=== PATIENT | female | born 1955 | race Caucasian/White ===

== ENCOUNTER 2017-03-10 00:13 | Inpatient (IN) | payer MEDICARE, OTHER ==
--- NOTE | 2017-03-10 00:31 | PDOC ---
History of Present Illness - General History Source: Patient, Family, Old Records Exam Limitations: No Limitations - History of Present Illness Initial Comments: 03/10/17 00:49 The patient is a 61 year old female, with a significant past medical history of hypertension, hyperlipidemia, diabetes and multiple myeloma (currently undergoing chemotherapy), who presents to the emergency department with chest pain just prior to presentation. The patient reports that she was in her usual state of health earlier this evening. The patient reports that just as she was going to bed tonight, she began to experience chest pain and palpitations with associated shortness of breath. The patient reports that she has experienced episodes of palpitations in the past which have resolved on their own. Tonight, the patient reports that the palpitations were coupled with chest pain which prompted her to come to the ED for evaluation. The patients primary language is Sinhala. A family member is at the bedside. Allergies: None reported. Past Surgical History: Tumor removal (left leg). Social History: Non-smoker. Denies alcohol or drug use. PCP: Dr. Yoon <Elizabeth Verdin - Last Filed: 03/10/17 00:58> <Adilene Salmon - Last Filed: 03/11/17 17:15> - General Stated Complaint: PALPITATIONS/ANXIETY Time Seen by Provider: 03/10/17 00:31 Past History <Elizabeth Verdin - Last Filed: 03/10/17 00:58> - Past Medical History Anemia: No Asthma: No Cancer: Yes (MULTIPLE MYELOMA) Cardiac Disorders: No CVA: No COPD: No CHF: No Dementia: No Diabetes: Yes GI Disorders: No Disorders: No HTN: Yes Hypercholesterolemia: Yes Liver Disease: No Seizures: No Thyroid Disease: No - Surgical History Abdominal Surgery: Yes Appendectomy: No Cardiac Surgery: No Cholecystectomy: No Lung Surgery: Yes Neurologic Surgery: No Orthopedic Surgery: Yes (tumor removal left leg, myeloma) - Immunization History Td Vaccination: Yes Immunization Up to Date: Yes - Psycho/Social/Smoking Cessation Hx Anxiety: No Suicidal Ideation: No Smoking Status: No Smoking History: Never smoked Years of Tobacco Use: 0 Have you smoked in the past 12 months: No Number of Cigarettes Smoked Daily: 0 Cigars Per Day: 0 Hx Alcohol Use: No Drug/Substance Use Hx: No Substance Use Type: None Hx Substance Use Treatment: No <Adilene Salmon - Last Filed: 03/11/17 17:15> - Past Medical History Allergies/Adverse Reactions: Allergies Allergy/AdvReac Type Severity Reaction Status Date / Time No Known Allergies Allergy Verified 03/10/17 00:44 Home Medications: Ambulatory Orders Metformin Xr [Glucophage Xr -] 500 mg PO BID 10/09/12 Nifedipine ER [Procardia XL -] 30 mg PO DAILY 12/01/13 Atorvastatin Ca [Lipitor] 20 mg PO HS 12/06/14 Fenofibrate 160 mg PO DAILY 12/06/14 Losartan Potassium 100 mg PO DAILY 12/06/14 Oxycodone HCl/Acetaminophen [Percocet 5/325 -] 1 tab PO Q6H #14 tablet MDD 4 Review of Systems - Review of Systems Able to Perform ROS?: Yes Comments:: 03/10/17 00:43 GENERAL/CONSTITUTIONAL: No fever or chills. No weakness. HEAD, EYES, EARS, NOSE AND THROAT: No change in vision. No ear pain or discharge. No sore throat. CARDIOVASCULAR: +Chest pain, palpitations, shortness of breath. RESPIRATORY: No cough, wheezing, or hemoptysis. GASTROINTESTINAL: No nausea, vomiting, diarrhea or constipation. GENITOURINARY: No dysuria, frequency, or change in urination. MUSCULOSKELETAL: No joint or muscle swelling or pain. No neck or back pain. SKIN: No rash. NEUROLOGIC: No headache, vertigo, loss of consciousness, or change in strength/ sensation. ENDOCRINE: No increased thirst. No abnormal weight change. HEMATOLOGIC/LYMPHATIC: No anemia, easy bleeding, or history of blood clots. ALLERGIC/IMMUNOLOGIC: No hives or skin allergy. <Elizabeth Verdin - Last Filed: 03/10/17 00:58> *Physical Exam - Physical Exam Comments: 03/10/17 00:58 GENERAL: Slightly anxious. Awake, alert, and fully oriented, in no acute distress. HEAD: No signs of trauma. EYES: PERRLA, EOMI, sclera anicteric, conjunctiva clear. ENT: Auricles normal inspection, hearing grossly normal, nares patent, oropharynx clear without exudates. Moist mucosa. NECK: Normal ROM, supple, no lymphadenopathy, JVD, or masses. LUNGS: Mildly tachypneic. Breath sounds equal, clear to auscultation bilaterally. No wheezes and no crackles. HEART: Regular rate and rhythm, normal S1 and S2, no murmurs, rubs or gallops. ABDOMEN: Soft, nontender, normoactive bowel sounds. No guarding, no rebound. No masses. EXTREMITIES: Normal range of motion, no edema. No clubbing or cyanosis. No cords , erythema, or tenderness. NEUROLOGICAL: Cranial nerves II through XII intact. Normal speech, normal gait. SKIN: Warm, dry, normal turgor, no rashes or lesions noted. <Elizabeth Verdin - Last Filed: 03/10/17 00:58> ED Treatment Course - LABORATORY CBC & Chemistry Diagram: 03/11/17 06:00 03/11/17 06:00 <Adilene Salmon - Last Filed: 03/11/17 17:15> Medical Decision Making - Medical Decision Making 03/10/17 02:13 Pt presents to the ED complaining of chest pain and shortness of breath. Multiple risk factors for cardiovascular disease. Also has history of MM. Concern for PE, ACS. EKG and inital troponin are negative. will check CT PE, admit to medicine for r/o ACS if CT PE is negative. <Adilene Salmon - Last Filed: 03/11/17 17:15> *DC/Admit/Observation/Transfer - Attestations Scribe Attestion: 03/10/17 00:35 Documentation prepared by Elizabeth Verdin, acting as medical services coordinator for Adilene Salmon MD. <Elizabeth Verdin - Last Filed: 03/10/17 00:58> - Discharge Dispostion Admit: Yes <Adilene Salmon - Last Filed: 03/11/17 17:15> Diagnosis at time of Disposition: NSTEMI (non-ST elevated myocardial infarction) - Discharge Dispostion Condition at time of disposition: Fair - Referrals
[2017-03-10] MEDS ORDERED: ASPIRIN 81 MG CHEWABLE TABLETS PO ONE (00:43)
[2017-03-10 00:58] VITALS: BMI 26.2
[2017-03-10] MEDS ORDERED: ASPIRIN 81 MG CHEWABLE TABLETS ONE (01:02)
[2017-03-10 01:06] LABS: BASOPHIL 0.4 % (0-2.0); EOSINOPHIL 1.1 % (0-4.5); MCHC 34.5 g/dl (32.0-36.0); MEAN CELL VOLUME 95.6 fl (80-96); MEAN PLT VOLUME 7.2 fl (7.5-11.1); NEUTROPHILS 46.6 % (42.8-82.8); PLATELET COUNT 214 K/MM3 (134-434); RDW 15.2 % (11.6-15.6); WHITE BLOOD COUNT 4.6 K/mm3 (4.0-10.0)
[2017-03-10 01:28] LABS: ALBUMIN 4.2 g/dl (3.4-5.0); ANION GAP 14 (8-16); BILIRUBIN,TOTAL 0.5 mg/dL (0.2-1.0); CALCIUM 9.4 mg/dL (8.5-10.1); CO2 23 mmol/L (21-32); CREATININE 0.9 mg/dL (0.55-1.02); GLUCOSE,RANDOM 229 mg/dL (74-106); SGOT/AST 18 U/L (15-37); SGPT/ALT 25 U/L (12-78); TOT PROT 8.3 g/dl (6.4-8.2)
[2017-03-10 01:30] LABS: ALK PHOS 140 U/L (45-117); CPK 99 IU/L (26-192); TROPONIN I < 0.02 ng/ml (0.00-0.05)
[2017-03-10 04:51] LABS: TROPONIN I 0.12 ng/ml (0.00-0.05)
--- NOTE | 2017-03-10 05:04 | PDOC ---
*Physical Exam - Vital Signs Last Vital Signs Temp Pulse Resp BP Pulse Ox 97.7 F 95 H 18 151/98 99 03/10/17 00:36 03/10/17 00:36 03/10/17 00:36 03/10/17 00:36 03/10/17 00:36 Heart Score/ECG Review - History History: Slightly suspicious - Electrocardiogram EKG: Normal - Age Age: 45-65 - Risk Factors Risk Factors Heart Score: Yes Hx Hypercholesterolemia, Yes Hx Hypertension Based on the list above the patient has:: 1-2 risk factors - Troponin Troponin: 1-3x normal limit - Score Heart Score - Total: 3 ED Treatment Course - LABORATORY CBC & Chemistry Diagram: 03/10/17 00:50 03/10/17 00:50 - ADDITIONAL ORDERS Additional order review: Laboratory Results 03/10/17 03/10/17 03/10/17 04:13 00:58 00:50 Sodium 136 Potassium 3.9 Chloride 99 D Carbon Dioxide 23 Anion Gap 14 BUN 13 D Creatinine 0.9 D Creat Clearance w eGFR > 60 POC Glucometer [phone] Random Glucose 229 H D Calcium 9.4 D Total Bilirubin 0.5 D AST 18 D ALT 25 Alkaline Phosphatase 140 H D Creatine Kinase 90 99 Troponin I 0.12 H < 0.02 Total Protein 8.3 H D Albumin 4.2 D 03/10/17 03/10/17 00:58 00:50 RBC 4.01 D MCV 95.6 MCHC 34.5 RDW 15.2 MPV 7.2 L Neutrophils % 46.6 Lymphocytes % 42.1 H D Monocytes % 9.8 Eosinophils % 1.1 D Basophils % 0.4 POC Glucometer [phone] - RADIOLOGY Radiology Studies Ordered: Category Date Time Status CHEST CT WITHOUT CONTRAST [CT] Stat CT Scan 03/10/17 03:02 Taken - Medications Given in the ED: ED Medications Discontinued Medications Generic Name Dose Route Start Last Admin Trade Name Freq PRN Reason Stop Dose Admin Aspirin 162 mg 03/10/17 00:43 03/10/17 01:38 Asa - PO 03/10/17 00:44 162 mg ONCE ONE Administration *DC/Admit/Observation/Transfer Diagnosis at time of Disposition: NSTEMI (non-ST elevated myocardial infarction) - Discharge Dispostion Condition at time of disposition: Fair Admit: Yes - Referrals Referrals: Marycruz Yoon [Primary Care Provider] - - Patient Instructions - Post Discharge Activity
[2017-03-10] MEDS ORDERED: METOPROLOL TARTRATE 25 MG TABLET (FP) PO ONE (05:54)
[2017-03-10] MEDS ORDERED: METOPROLOL TARTRATE 25 MG TABLET (FP) ONE (06:14)
--- NOTE | 2017-03-10 06:47 | HP ---
CHIEF COMPLAINT: chest pain, palpitations PCP: Marycruz Yoon; Oncology @[facility], no cardio HISTORY OF PRESENT ILLNESS: This is a 61 year old female with a past medical history significant for HTN, HLD, DM, Multiple myeloma on chemo presented to the ED with chest pain, palpitations and SOB when getting ready for bed last night prompting her to come to the ED. She was given ASA 162. Upon exam pt no longer with CP, palps or SOB. She does report some mid back pain, but states it is "from the bed." She denies recent illness, abdominal pain, N/V/D. ER course was notable for: (1) trop 0.02 trended up to 0.12 (2) ECG WNL (3) CT chest Recent Travel: pt denies PAST MEDICAL HISTORY: HTN HLD DM Multiple myeloma on chemo, last received 02/21/17, due 03/14/17 PAST SURGICAL HISTORY: tumor removal L leg mass removed from behind kidney 2008 Social History: Smoking: pt denies Alcohol: pt denies Drugs: pt denies Allergies No Known Allergies Allergy (Verified 03/10/17 00:44) HOME MEDICATIONS: 3 Medication Instructions Recorded Metformin Xr [Glucophage Xr -] 500 mg PO BID 10/09/12 Nifedipine ER [Procardia XL -] 30 mg PO DAILY 12/01/13 Atorvastatin Ca [Lipitor] 20 mg PO HS 12/06/14 Fenofibrate 160 mg PO DAILY 12/06/14 Losartan Potassium 100 mg PO DAILY 12/06/14 Oxycodone HCl/Acetaminophen 1 tab PO Q6H #14 tablet MDD 4 11/29/15 [Percocet 5/325 -] REVIEW OF SYSTEMS CONSTITUTIONAL: Absent: fever, chills, diaphoresis, generalized weakness, malaise, loss of appetite, weight change HEENT: Absent: rhinorrhea, nasal congestion, throat pain, throat swelling, difficulty swallowing, mouth swelling, ear pain, eye pain, visual changes CARDIOVASCULAR: Present: chest pain, palpitations Absent: syncope, irregular heart rate, lightheadedness, peripheral edema RESPIRATORY: Present: shortness of breath Absent: cough, dyspnea with exertion, orthopnea, wheezing, stridor, hemoptysis GASTROINTESTINAL: Absent: abdominal pain, abdominal distension, nausea, vomiting, diarrhea, constipation, melena, hematochezia GENITOURINARY: Absent: dysuria, frequency, urgency, hesitancy, hematuria, flank pain, genital pain MUSCULOSKELETAL: Absent: myalgia, arthralgia, joint swelling, back pain, neck pain SKIN: Absent: rash, itching, pallor HEMATOLOGIC/IMMUNOLOGIC: Absent: easy bleeding, easy bruising, lymphadenopathy, frequent infections ENDOCRINE: Absent: unexplained weight gain, unexplained weight loss, heat intolerance, cold intolerance NEUROLOGIC: Absent: headache, focal weakness or paresthesias, dizziness, unsteady gait, seizure, mental status changes, bladder or bowel incontinence PSYCHIATRIC: Absent: anxiety, depression, suicidal or homicidal ideation, hallucinations. PHYSICAL EXAMINATION Vital Signs - 24 hr 3 03/10/17 03/10/17 00:36 05:25 Temperature 97.7 F 97.2 F L Pulse Rate 95 H Pulse Rate [ 77 Right Apical] Respiratory 18 19 Rate Blood Pressure 151/98 Blood Pressure 128/73 [Left Arm] O2 Sat by Pulse 99 98 Oximetry (%) GENERAL: Awake, alert, and fully oriented, in no acute distress. HEAD: Normal with no signs of trauma. EYES: Pupils equal, round and reactive to light, extraocular movements intact, sclera anicteric, conjunctiva clear. No lid lag. EARS, NOSE, THROAT: Ears normal, nares patent, oropharynx clear without exudates. Moist mucous membranes. NECK: Normal range of motion, supple without lymphadenopathy, JVD, or masses. LUNGS: Breath sounds equal, clear to auscultation bilaterally. No wheezes, and no crackles. No accessory muscle use. HEART: Regular rate and rhythm, normal S1 and S2 without murmur, rub or gallop. ABDOMEN: Soft, nontender, not distended, normoactive bowel sounds, no guarding, no rebound, no masses. No hepatomegaly or splenomegaly. MUSCULOSKELETAL: Normal range of motion at all joints. No bony deformities or tenderness. No CVA tenderness. UPPER EXTREMITIES: 2+ pulses, warm, well-perfused. No cyanosis. No clubbing. No peripheral edema. LOWER EXTREMITIES: 2+ pulses, warm, well-perfused. No calf tenderness. No peripheral edema. varicose veins left leg NEUROLOGICAL: Cranial nerves II-XII intact. Normal speech. Normal gait. PSYCHIATRIC: Cooperative. Good eye contact. Appropriate mood and affect. SKIN: Warm, dry, normal turgor, no rashes or lesions noted, normal capillary refill. Laboratory Results - last 24 hr 3 03/10/17 03/10/17 03/10/17 03/10/17 00:50 00:50 00:58 04:13 WBC 4.6 D RBC 4.01 D Hgb 13.2 D Hct 38.3 D MCV 95.6 MCH 33.0 MCHC 34.5 RDW 15.2 Plt Count 214 D MPV 7.2 L Neutrophils % 46.6 Lymphocytes % 42.1 H D Monocytes % 9.8 Eosinophils % 1.1 D Basophils % 0.4 Sodium 136 Potassium 3.9 Chloride 99 D Carbon Dioxide 23 Anion Gap 14 BUN 13 D Creatinine 0.9 D Creat Clearance w eGFR > 60 POC Glucometer [phone] Random Glucose 229 H D Calcium 9.4 D Total Bilirubin 0.5 D AST 18 D ALT 25 Alkaline Phosphatase 140 H D Creatine Kinase 99 90 Troponin I < 0.02 0.12 H Total Protein 8.3 H D Albumin 4.2 D ECG 03/10/17 00:24 NSR, vent rate 91 QTC [address]/T changes 03/10/17 05:00 NSR, vent rate [address]/T changes CT chest report unavailable, as per ED physician, normal ASSESSMENT/PLAN: 61yF with past medical history of HTN, HLD, DM, mult myeloma on chemo presented with chest pain, palpitations, SOB. Chest pain - heart score 6, will admit to observation for cardiology consult and stress test - troponin 0.12, ASA and betablocker given, repeat @ 10am HTN/HLD - cont home medications DM - home metformin held, BGM AC/HS with novolog sliding scale DVT PPX - deferred, expected LOS <48 FEN - tolerating po - BMP with 10am trop - NPO for stress test Dispo: Pt currently requires inpatient monitoring for management of her emergent condition. Visit type - Emergency Visit Emergency Visit: Yes ED Registration Date: 03/10/17 Care time: The patient presented to the Emergency Department on the above date and was hospitalized for further evaluation of their emergent condition. - New Patient This patient is new to me today: Yes Date on this admission: 03/10/17 - Critical Care Critical Care patient: No
[2017-03-10] MEDS: FENOFIBRIC ACID 135 MG CAP PO SCH (10:20)
[2017-03-10] MEDS: LOSARTAN POTASSIUM 50 MG TABLET (FP) PO SCH (10:20)
[2017-03-10] MEDS: NIFEdipine E.R. 30 MG TABLET (FP) PO SCH (10:20)
[2017-03-10 11:22] LABS: TROPONIN I 0.17 ng/ml (0.00-0.05)
[2017-03-10] MEDS: INSULIN SLIDING SCALE (NOVOLOG) 1 VIAL SQ SCH ×3 (12:12→22:25)
--- NOTE | 2017-03-10 15:00 | CON.CARD ---
Cardiology Consult (text) - Consultation Consultation Note: CC: cp/palps 61 yo with pmhx of hypertension, hyperlipidemia, iddm, and multiple myeloma ( currently undergoing chemotherapy), who presents to the emergency department with chest pain/palps. patient states that she gets a mild similar discomfort when she gets chemotherapy, but last night she had a more severe episode and had not received chemotherapy recently. [place] well up until event. Sudden onset of left sided chest pain associated with palps (rapid regular, pounding heart rate), and associated dizziness, sob. Symptoms lasted for 40 minutes. After that she has had intermittent sensation of chest heaviness and intermittent palps. No symptoms since this morning. received metoprolol 25 mg and asa in the ER. + back pain no orthopnea, pnd, le edema, claudication, bleeding, syncope. no f/c/s, n/v/d, cough, congestion, rashes, headache pmhx/pshx: per hpi, per report Bone marrow transplant, fibroidectomy social hx: never smoker, no etoh or illicits fam hx: mother with dm ros: per hpi Ambulatory Orders Metformin Xr [Glucophage Xr -] 500 mg PO BID 10/09/12 Nifedipine ER [Procardia XL -] 30 mg PO DAILY 12/01/13 Atorvastatin Ca [Lipitor] 20 mg PO HS 12/06/14 Fenofibrate 160 mg PO DAILY 12/06/14 Losartan Potassium 100 mg PO DAILY 12/06/14 Oxycodone HCl/Acetaminophen [Percocet 5/325 -] 1 tab PO Q6H #14 tablet MDD 4 insulin Current Medications Atorvastatin Calcium (Lipitor -) 20 mg PO [facility] Fenofibric Acid (Trilipix -) 135 mg PO DAILY [facility] Last Admin: 03/10/17 10:20 Dose: 135 mg Insulin Aspart (Novolog Vial Sliding Scale -) 1 vial SQ TIDAC [facility] PRN Reason: Protocol Last Admin: 03/10/17 12:12 Dose: Not Given Insulin Aspart (Novolog Vial Sliding Scale -) 1 vial SQ HS [facility] PRN Reason: Protocol Losartan Potassium (Cozaar -) 100 mg PO DAILY [facility] Last Admin: 03/10/17 10:20 Dose: 100 mg Nifedipine (Procardia Xl -) 30 mg PO DAILY [facility] Last Admin: 03/10/17 10:20 Dose: 30 mg Vital Signs - 24 hr 03/10/17 03/10/17 03/10/17 00:36 05:25 08:40 Temperature 97.7 F 97.2 F L Pulse Rate 95 H Pulse Rate [ 77 63 Right Apical] Respiratory 18 19 16 Rate Blood Pressure 151/98 Blood Pressure 128/73 132/87 [Left Arm] O2 Sat by Pulse 99 98 98 Oximetry (%) 03/10/17 12:40 Temperature Pulse Rate Pulse Rate [ 59 L Right Apical] Respiratory Rate Blood Pressure Blood Pressure 116/70 [Left Arm] O2 Sat by Pulse 95 Oximetry (%) nad, calm jvd flat, neck supple ctab, nl effort rrr nl s1, s2 no mrg + bs soft nt nd ext without e/c/c + dp/pt no carotid bruits aaox3 no jaundice, diaphoresis. CBC, BMP 03/10/17 00:50 03/10/17 00:50 Laboratory Tests 03/10/17 03/10/17 03/10/17 00:50 04:13 10:43 Total Bilirubin 0.5 D AST 18 D ALT 25 Alkaline Phosphatase 140 H D Creatine Kinase 99 90 85 Troponin I < 0.02 0.12 H 0.17 H Ekg: wnl echo 03/2017: nl lv/rv. redundant chord vs. torn chord vs prolapse of posterior MV leaflet (less likely vegetation). 1+ ar/mr/tr/pr. rvsp nl. ct scan without contrast: minimal atelectasis. 3 mm pulm nodule. non-specific 7mm hepatic density. multiple compression fractures. 61 yo with pmhx of hypertension, hyperlipidemia, iddm, and multiple myeloma ( currently undergoing chemotherapy), who presents to the emergency department with chest pain/palps and borderline troponin elevation. CP/palps - troponins in intermediate range with normal CK, 2nd and 3rd troponins slightly increased from initial - non-specific finding. EKG wnl. echo without rwma. Overall clinical picture not consistent with ACS and would not start acs protocol at this time. However, patient with typical anginal symptoms, risk factors for cad and mild troponin leak in setting of fast heart rate --> would further evaluate with stress test. - would consider rule out of other etiologies of troponin leak/cp/palps such as PE. - would evaluate for arrhythmia as etiology of chest pain/palps/dizziness/sob and monitor on telemetry. - tsh, magnesium - con't asa, increase statin dose. currently HR down after receiving metoprolol. can redose if heart rate becomes elevated or if cp recurs. con't home nifedipine and losartan. htn/hl - meds as above
[2017-03-10] MEDS ORDERED: INSULIN (NOVOLOG) ASPART 100 UNITS/ML 10ML VIAL ONE ×2 (17:14→22:23)
--- NOTE | 2017-03-10 17:27 | HOSP ---
Physical Examination Vital Signs: Vital Signs Temperature 97.2 F L 03/10/17 05:25 Pulse Rate 75 03/10/17 16:40 Respiratory Rate 16 03/10/17 08:40 Blood Pressure 130/85 03/10/17 16:40 O2 Sat by Pulse Oximetry (%) 96 03/10/17 16:40 Hospitalist Encounter Assessment: Imaging: ECHO 03/2017: nl lv/rv. redundant chord vs. torn chord vs prolapse of posterior MV leaflet (less likely vegetation). 1+ ar/mr/tr/pr. rvsp nl. CT chest non contrast: minimal atelectasis. 3 mm pulm nodule. non-specific 7mm hepatic density. multiple compression fractures. Assessment: 61 year old female with past medical history of HTN, HLD, DM, mult myeloma on chemo admitted with chest pain, palpitations, SOB. Plan: 1. Chest pain - Less likely ACS, no AC at this time - Trops rising - Will need inpt stress due to high risk factors, however on hold until Monday and trops downtrend - Trend CE - Follow TSH - Telemetry monitoring - Continue metoprolol, if HR increases can up titrate - Cont losartan - Cont nifedipine 2. r/o PE, tachycardia - HR normal - Given hx of MM, trop leak and palpitations need to r/o PE - CTA ordered - D/w pulm and cardiology 3. HLD - Increase statin lipitor 80mg hs 4. DM II - home metformin held - BGM, ISS, ACHS 5. DVT PPX - Heparin sq Dispo: - Will be here through the weekend
--- NOTE | 2017-03-10 17:33 | PN ---
Progress Note (short form) - Note Progress Note: PULMONARY CONSULTATION DICTATED 03/10/17 IMP CP/DYSPNEA/PALPITATIONS R/O CARDIAC,R/O PE + UNDERLYING MALIGNANCY + TROPONINS MM IDDM HTN HLD PLAN CHEST CTA CARDIAC W/U TREND TROPONINS O2 PRN DR CASTRO Problem List - Problems (1) Diabetes mellitus Code(s): E11.9 - TYPE 2 DIABETES MELLITUS WITHOUT COMPLICATIONS Qualifiers: Diabetes mellitus type: type 2 Diabetes mellitus complication status: without complication Qualified Code(s): E11.9 - Type 2 diabetes mellitus without complications (2) Hyperlipidemia Code(s): E78.5 - HYPERLIPIDEMIA, UNSPECIFIED (3) Hypertension Code(s): I10 - ESSENTIAL (PRIMARY) HYPERTENSION (4) Multiple myeloma Code(s): C90.00 - MULTIPLE MYELOMA NOT HAVING ACHIEVED REMISSION (5) Chest pain Code(s): R07.9 - CHEST PAIN, UNSPECIFIED (6) Dyspnea Code(s): R06.00 - DYSPNEA, UNSPECIFIED (7) Troponin level elevated Code(s): R74.8 - ABNORMAL LEVELS OF OTHER SERUM ENZYMES
[2017-03-10 17:53] LABS: TROPONIN I 0.08 ng/ml (0.00-0.05)
--- NOTE | 2017-03-10 18:53 | CONS ---
DATE OF CONSULTATION: 03/10/2017 PULMONARY CONSULTATION REFERRING PHYSICIAN: SKYLER Doan HISTORY OF PRESENT ILLNESS: The patient is a 61-year-old female, past medical history of hypertension, hyperlipidemia, insulin dependent diabetes mellitus, multiple myeloma currently undergoing chemotherapy, last therapy about a week ago, admitted to [facility] with acute onset of chest pain, shortness of breath, and palpitations. Patient states she was doing well until last night, when she woke up from sleep complaining of palpitations and chest pain. She also complained of increasing shortness of breath. Symptoms continued to worsen, at which time she presented to the emergency room. Patient denies any nausea, vomiting, or diaphoresis, denies any hemoptysis. States that symptoms lasted approximately 40 minutes, which had intermittent sensation of chest heaviness and palpitations. Patient in emergency room received 25 mg of metoprolol with an aspirin, with good clinical response. Of note is the patient was also found to have elevated troponin levels. Patient denies any history of cardiac disease. She is a nonsmoker. There is no history of occupational exposure to chemicals or fumes. PAST MEDICAL HISTORY: Again includes hypertension, hyperlipidemia, insulin dependent diabetes mellitus, multiple myeloma. REVIEW OF SYSTEMS: No orthopnea. No PND. Positive shortness of breath. Positive chest pain. Positive palpitations. No cough. No hemoptysis. No abdominal pain. No lower extremity edema. CURRENT MEDICATIONS: Include Cozaar, Procardia, , Lipitor, Novolog, and aspirin. PHYSICAL EXAMINATION: General: The patient is an elderly female well-developed, awake, alert, in no acute distress. Vital signs: She is afebrile. Blood pressure is 130/85, respiratory rate 16, O2 saturation 99% on room air. HEENT: Head is normocephalic, atraumatic. Neck: Supple. Heart: Regular. S1, S2. Chest: Clear. Abdomen: Soft. Bowel sounds positive. Extremities: No cyanosis, edema. LABORATORY: WBC is 4.6, hemoglobin 13.2, hematocrit 38.3, platelet count of 214,000. Troponin 0.17 initially, is 0.02. BUN 13, creatinine 0.9, glucose random is 229, WBC is 4.6, hemoglobin 13.2, hematocrit 38.3, platelet count 214,000. Chest CT reveals multiple compression fractures thoracic spine, there are 3-mm nodules in the left lower lobe, IMPRESSION: 1. Shortness of breath, chest pain, palpitations, etiology to be determined. Cannot exclude possible pulmonary emboli, although currently the patient is clinically stable without any hypoxemia or tachycardia. 2. Cardiac with angina. 3. Multiple myeloma. 4. Insulin dependent diabetes mellitus. 5. Hypertension. 6. Hyperlipidemia. PLAN: Agree with CTA to the chest, rule out PE, continue cardiac workup, exercise stress test if cardiac CTA negative, supplemental O2 p.r.anay CASTRO M.D. [id number]
[2017-03-10] MEDS ORDERED: INSULIN DETEMIR 100 UNITS/ML MDV SQ SCH (22:00)
[2017-03-10] MEDS ORDERED: ATORVASTATIN CA 20 MG TABLET (FP) PO SCH (22:00)
[2017-03-10] MEDS ORDERED: INSULIN SLIDING SCALE (NOVOLOG) 1 VIAL SQ SCH (22:00)
[2017-03-10] MEDS: INSULIN DETEMIR 100 UNITS/ML MDV SQ SCH (22:24)
[2017-03-10] MEDS: ATORVASTATIN CA 40 MG TABLET (FP) PO SCH (22:24)
[2017-03-11] MEDS: INSULIN SLIDING SCALE (NOVOLOG) 1 VIAL SQ SCH ×4 (06:27→21:25)
[2017-03-11 07:40] LABS: BASOPHIL 0.5 % (0-2.0); EOSINOPHIL 1.6 % (0-4.5); MCH 32.8 pg (25.7-33.7); MCHC 33.9 g/dl (32.0-36.0); MEAN CELL VOLUME 96.8 fl (80-96); MEAN PLT VOLUME 6.8 fl (7.5-11.1); NEUTROPHILS 47.3 % (42.8-82.8); PLATELET COUNT 204 K/MM3 (134-434); RDW 15.4 % (11.6-15.6)
[2017-03-11 08:25] LABS: ANION GAP 7 (8-16); CALCIUM 9.1 mg/dL (8.5-10.1); CO2 29 mmol/L (21-32); CREATININE 0.7 mg/dL (0.55-1.02); GLUCOSE,RANDOM 101 mg/dL (74-106); MAGNESIUM 1.9 mg/dL (1.8-2.4); PHOSPHOROUS 3.8 mg/dL (2.5-4.9)
--- NOTE | 2017-03-11 09:10 | PN ---
Progress Note (short form) - Note Progress Note: s: no cp sob palps dizzy o: Vital Signs Period Temp Pulse Resp BP Sys/Vizcarra Pulse Ox Last 24 Hr 97.6 F-98.3 F 59-75 16-16 116-130/58-85 95-96 nad, calm jvd flat, neck supple ctab, nl effort rrr nl s1, s2 no mrg + bs soft nt nd ext without e/c/c aaox3 no jaundice, diaphoresis. Current Medications Generic Name Dose Route Start Last Admin Trade Name Freq PRN Reason Stop Dose Admin Aspirin 81 mg 03/11/17 10:00 Asa - PO DAILY NONA Atorvastatin Calcium 40 mg 03/10/17 22:00 03/10/17 22:24 Lipitor - PO 40 mg HS NONA Administration Fenofibric Acid 135 mg 03/10/17 10:00 03/10/17 10:20 Trilipix - PO 135 mg DAILY NONA Administration Insulin Aspart 1 vial 03/10/17 22:00 03/11/17 06:27 Novolog Vial Sliding Scale - SQ Not Given ACHS [facility] Protocol Insulin Detemir 20 units 03/10/17 22:00 03/10/17 22:24 Levemir Vial SQ 20 units HS NONA Administration Losartan Potassium 100 mg 03/10/17 10:00 03/10/17 10:20 Cozaar - PO 100 mg DAILY NONA Administration Nifedipine 30 mg 03/10/17 10:00 03/10/17 10:20 Procardia Xl - PO 30 mg DAILY NONA Administration CBC, BMP 03/11/17 06:00 03/11/17 06:00 echo 03/2017: nl lv/rv. redundant chord vs. torn chord vs prolapse of posterior MV leaflet (less likely vegetation). 1+ ar/mr/tr/pr. rvsp nl. ct scan without contrast: minimal atelectasis. 3 mm pulm nodule. non-specific 7mm hepatic density. multiple compression fractures. tele: sr a/p: 61 yo with pmhx of hypertension, hyperlipidemia, iddm, and multiple myeloma (currently undergoing chemotherapy), who presents to the emergency department with chest pain/palps and borderline troponin elevation. CP/palps - troponins in intermediate range with normal CK, 2nd and 3rd troponins slightly increased from initial - non-specific finding. EKG wnl. echo without rwma. Overall clinical picture not consistent with ACS. However, patient with typical anginal symptoms, risk factors for cad and mild troponin leak in setting of fast heart rate --> would further evaluate with stress test. - would consider rule out of other etiologies of troponin leak/cp/palps such as PE. - would evaluate for arrhythmia as etiology of chest pain/palps/dizziness/sob and monitor on telemetry-->benign so far - con't asa, statin. htn: -cont current meds hld: - cont statin
[2017-03-11] MEDS: FENOFIBRIC ACID 135 MG CAP PO SCH (09:45)
[2017-03-11] MEDS: ASPIRIN 81 MG CHEWABLE TABLETS PO SCH (09:45)
[2017-03-11] MEDS: LOSARTAN POTASSIUM 50 MG TABLET (FP) PO SCH (09:45)
[2017-03-11] MEDS: NIFEdipine E.R. 30 MG TABLET (FP) PO SCH (09:45)
--- NOTE | 2017-03-11 10:45 | PN ---
Physical Exam: SUBJECTIVE: Patient seen and examined at bedside. Family present. Voices no complaints. Denies chest pain and SOB. OBJECTIVE: Vital Signs Period Temp Pulse Resp BP Sys/Vizcarra Pulse Ox Last 24 Hr 97.6 F-98.3 F 62-71 16-16 119-128/58-72 96-96 GENERAL: The patient is awake, alert, and fully oriented, in no acute distress. HEAD: Normal with no signs of trauma. EYES: PERRL, extraocular movements intact, sclera anicteric, conjunctiva clear. No ptosis. LUNGS: Breath sounds equal, clear to auscultation bilaterally, no wheezes, no crackles, no accessory muscle use. HEART: Regular rate and rhythm, S1, S2 without murmur, rub or gallop. ABDOMEN: Soft, nontender, nondistended, normoactive bowel sounds, no guarding, no rebound EXTREMITIES: 2+ pulses, warm, well-perfused, no edema. NEUROLOGICAL: Cranial nerves II through XII grossly intact. Normal speech, gait not observed. Laboratory Results - last 24 hr 03/10/17 03/11/17 03/11/17 22:19 05:36 06:00 WBC 4.0 RBC 3.63 Hgb 11.9 Hct 35.2 MCV 96.8 H MCH 32.8 MCHC 33.9 RDW 15.4 Plt Count 204 MPV 6.8 L Neutrophils % 47.3 Lymphocytes % 39.0 Monocytes % 11.6 H Eosinophils % 1.6 Basophils % 0.5 Sodium Potassium Chloride Carbon Dioxide Anion Gap BUN Creatinine POC Glucometer 157 115 Random Glucose Calcium Phosphorus Magnesium TSH 03/11/17 06:00 WBC RBC Hgb Hct MCV MCH MCHC RDW Plt Count MPV Neutrophils % Lymphocytes % Monocytes % Eosinophils % Basophils % Sodium 142 Potassium 4.2 Chloride 106 Carbon Dioxide 29 D Anion Gap 7 L BUN 16 D Creatinine 0.7 D POC Glucometer Random Glucose 101 D Calcium 9.1 Phosphorus 3.8 Magnesium 1.9 D TSH 1.50 Current Medications Generic Name Dose Route Start Last Admin Trade Name Freq PRN Reason Stop Dose Admin Aspirin 81 mg 03/11/17 10:00 03/11/17 09:45 Asa - PO 81 mg DAILY NONA Administration Atorvastatin Calcium 40 mg 03/10/17 22:00 03/10/17 22:24 Lipitor - PO 40 mg HS NONA Administration Fenofibric Acid 135 mg 03/10/17 10:00 03/11/17 09:45 Trilipix - PO 135 mg DAILY NONA Administration Heparin Sodium (Porcine) 1,000 unit 03/11/17 12:19 Heparin - IVPUSH PRN PRN Heparin Heparin Sodium (Porcine) 5,000 unit 03/11/17 12:19 Heparin - IVPUSH PRN PRN Heparin Heparin Sodium (Porcine) 25, 500 mls @ 16 mls/hr 03/11/17 12:30 03/11/17 16:00 000 unit/ Sodium Chloride IV 16 mls/hr TITR NONA Administration Protocol 800 UNIT/HR Insulin Aspart 1 vial 03/10/17 22:00 03/11/17 17:47 Novolog Vial Sliding Scale - SQ Not Given ACHS [facility] Protocol Insulin Detemir 20 units 03/10/17 22:00 03/10/17 22:24 Levemir Vial SQ 20 units HS NONA Administration Losartan Potassium 100 mg 03/10/17 10:00 03/11/17 09:45 Cozaar - PO 100 mg DAILY NONA Administration Nifedipine 30 mg 03/10/17 10:00 03/11/17 09:45 Procardia Xl - PO 30 mg DAILY NONA Administration ASSESSMENT/PLAN: 61 year-old female with a PMH significant for HTN, HLD, IDDM, and multiple myeloma on chemo. Admitted for acute onset of chest pain, SOB, and palpitations. Chest pain --patient reports symptom resolution --cardiac: flat-trending troponins, non-specific; ECG wnl; echo: LV normal, RV normal, mild MR, mild TR, mild AI, mild PI; low suspicion for ACS but cardiology wants stress testing if PE ruled out (inpatient v. outpatient?) --pulmonary: Wells score 4, moderate risk for PE; needs CTA but patient concerned about risk of RADHA given h/o multiple myeloma; will get renal consult to assess RADHA risk and further discuss with patient; if not CTA, will need VQ scan; started heparin drip; US b/l LE pending Hypertension --continue losartan, nifedipine Hyperlipidemia --continue lipitor IDDM --continue levemir --Novolog sliding scale coverage Multiple myeloma --being treated outpatient --will contact oncologist F/E/N Fluids: PO intake adequate Electrolytes: replete as indicated Nutrition: sodium controlled DVT prophylaxis: heparin drip, oob, ambulation PT evaluation Daily PT Dispo: continues to require inpatient care. Full Code. Visit type - Emergency Visit Emergency Visit: Yes ED Registration Date: 03/10/17 Care time: The patient presented to the Emergency Department on the above date and was hospitalized for further evaluation of their emergent condition. - New Patient This patient is new to me today: Yes Date on this admission: 03/11/17 - Critical Care Critical Care patient: No
--- NOTE | 2017-03-11 12:10 | PN ---
Progress Note (short form) - Note Progress Note: PULMONARY Chest pain and shortness of breath resolving. No palpitations. Last Vital Signs Temp Pulse Resp BP Pulse Ox 97.9 F 62 16 119/67 96 03/11/17 06:00 03/11/17 06:00 03/11/17 06:00 03/11/17 06:00 03/11/17 00:00 Intake & Output 03/08/17 03/09/17 03/10/17 03/11/17 23:59 23:59 23:59 23:59 Intake Total 120 100 Balance 120 100 Weight 148 lb 145 lb 6.4 oz Gen: NAD at rest Heart: RRR Lung: decreased breath sounds at the bases Abd: soft, nontender Ext: no edema CBC, BMP 03/11/17 06:00 03/11/17 06:00 Active Medications Aspirin (Asa -) 81 mg PO DAILY [facility] Last Admin: 03/11/17 09:45 Dose: 81 mg Atorvastatin Calcium (Lipitor -) 40 mg PO HS [facility] Last Admin: 03/10/17 22:24 Dose: 40 mg Fenofibric Acid (Trilipix -) 135 mg PO DAILY [facility] Last Admin: 03/11/17 09:45 Dose: 135 mg Insulin Aspart (Novolog Vial Sliding Scale -) 1 vial SQ [facility] PRN Reason: Protocol Last Admin: 03/11/17 06:27 Dose: Not Given Insulin Detemir (Levemir Vial) 20 units SQ HS [facility] Last Admin: 03/10/17 22:24 Dose: 20 units Losartan Potassium (Cozaar -) 100 mg PO DAILY [facility] Last Admin: 03/11/17 09:45 Dose: 100 mg Nifedipine (Procardia Xl -) 30 mg PO DAILY [facility] Last Admin: 03/11/17 09:45 Dose: 30 mg A/P Chest Pain +Troponins Multiple Myeloma HTN Hyperlipidemia DM - agree with CTA chest to r/o PE - telemetry monitoring - ASA, statin - DVT prophylaxis
[2017-03-11] MEDS ORDERED: HEPARIN NA (PORCINE) 5,000 UNITS/ML 1ML VIAL IVPUSH PRN ×2 (12:19)
[2017-03-11] MEDS ORDERED: PT OWN MED DRAWER 7, Y5N ONE ×2 (13:27→14:55)
--- NOTE | 2017-03-11 13:56 | EKG ---
Test Reason : Blood Pressure : / mmHG Vent. Rate : 061 BPM Atrial Rate : 061 BPM P-R Int : 172 ms QRS Dur : 068 ms QT Int : 408 ms P-R-T Axes : 051 018 035 degrees QTc Int : 410 ms POOR DATA QUALITY, INTERPRETATION MAY BE ADVERSELY AFFECTED NORMAL SINUS RHYTHM EARLY TRANSITION IN V2 NORMAL ST-T WAVES WHEN COMPARED WITH ECG OF 06-DEC-2014 20:30, VENT. RATE HAS DECREASED BY 38 BPM REPEAT EKG IF CLINICALLY INDICATED Confirmed by SERENA HIDALGO MD ([id number]) on 03/11/2017 1:56:23 PM Referred By: Confirmed By:SERENA HIDALGO MD
[2017-03-11] MEDS: HEPARIN - 25,000 UNIT in SODIUM CHLORIDE 495 ML IV SCH (16:00)
[2017-03-11] MEDS: ATORVASTATIN CA 40 MG TABLET (FP) PO SCH (21:25)
[2017-03-11] MEDS: INSULIN DETEMIR 100 UNITS/ML MDV SQ SCH (21:25)
[2017-03-12] MEDS: INSULIN SLIDING SCALE (NOVOLOG) 1 VIAL SQ SCH ×4 (06:20→22:35)
[2017-03-12 07:24] LABS: ALBUMIN 3.3 g/dl (3.4-5.0); ANION GAP 8 (8-16); BILIRUBIN,TOTAL 0.6 mg/dL (0.2-1.0); CALCIUM 8.7 mg/dL (8.5-10.1); CO2 26 mmol/L (21-32); CREATININE 0.7 mg/dL (0.55-1.02); GLUCOSE,RANDOM 102 mg/dL (74-106); MAGNESIUM 1.9 mg/dL (1.8-2.4); PHOSPHOROUS 3.1 mg/dL (2.5-4.9); SGOT/AST 15 U/L (15-37); SGPT/ALT 20 U/L (12-78)
[2017-03-12 07:25] LABS: ALK PHOS 97 U/L (45-117)
--- NOTE | 2017-03-12 09:21 | PN ---
Progress Note (short form) - Note Progress Note: s: no cp sob palps dizzy o: Vital Signs Period Temp Pulse Resp BP Sys/Vizcarra Pulse Ox Last 24 Hr 98 F-99.1 F 71-88 18-20 104-125/65-72 98 nad, calm jvd flat, neck supple ctab, nl effort rrr nl s1, s2 no mrg + bs soft nt nd ext without e/c/c aaox3 no jaundice, diaphoresis. Current Medications Generic Name Dose Route Start Last Admin Trade Name Freq PRN Reason Stop Dose Admin Aspirin 81 mg 03/11/17 10:00 03/11/17 09:45 Asa - PO 81 mg DAILY NONA Administration Atorvastatin Calcium 40 mg 03/10/17 22:00 03/11/17 21:25 Lipitor - PO 40 mg HS NONA Administration Fenofibric Acid 135 mg 03/10/17 10:00 03/11/17 09:45 Trilipix - PO 135 mg DAILY NONA Administration Heparin Sodium (Porcine) 1,000 unit 03/11/17 12:19 Heparin - IVPUSH PRN PRN Heparin Heparin Sodium (Porcine) 5,000 unit 03/11/17 12:19 03/11/17 23:04 Heparin - IVPUSH 5,000 unit PRN PRN Administration Heparin Heparin Sodium (Porcine) 25, 500 mls @ 16 mls/hr 03/11/17 12:30 03/11/17 22:35 000 unit/ Sodium Chloride IV 950 unit/hr TITR NONA Titration Protocol 800 UNIT/HR Insulin Aspart 1 vial 03/10/17 22:00 03/12/17 06:20 Novolog Vial Sliding Scale - SQ Not Given ACHS [facility] Protocol Insulin Detemir 20 units 03/10/17 22:00 03/11/17 21:25 Levemir Vial SQ 20 units HS NONA Administration Losartan Potassium 100 mg 03/10/17 10:00 03/11/17 09:45 Cozaar - PO 100 mg DAILY NONA Administration Nifedipine 30 mg 03/10/17 10:00 03/11/17 09:45 Procardia Xl - PO 30 mg DAILY NONA Administration CBC, BMP 03/11/17 06:00 03/12/17 05:30 echo 03/2017: nl lv/rv. redundant chord vs. torn chord vs prolapse of posterior MV leaflet (less likely vegetation). 1+ ar/mr/tr/pr. rvsp nl. ct scan without contrast: minimal atelectasis. 3 mm pulm nodule. non-specific 7mm hepatic density. multiple compression fractures. tele: sr a/p: 61 yo with pmhx of hypertension, hyperlipidemia, iddm, and multiple myeloma (currently undergoing chemotherapy), who presents to the emergency department with chest pain/palps and borderline troponin elevation. CP/palps - troponins in intermediate range with normal CK, 2nd and 3rd troponins slightly increased from initial - non-specific finding. EKG wnl. echo without rwma. Overall clinical picture not consistent with ACS. However, patient with typical anginal symptoms, risk factors for cad and mild troponin leak in setting of fast heart rate --> would further evaluate with stress test (if cta chest is negative for PE, stress would then be done monday as monday is holiday and cardio department closed). -cta chest pending - con't asa, statin. htn: -cont current meds hld: - cont statin
[2017-03-12] MEDS: ASPIRIN 81 MG CHEWABLE TABLETS PO SCH (09:41)
[2017-03-12] MEDS: LOSARTAN POTASSIUM 50 MG TABLET (FP) PO SCH (09:41)
[2017-03-12] MEDS: FENOFIBRIC ACID 135 MG CAP PO SCH (09:41)
[2017-03-12] MEDS: NIFEdipine E.R. 30 MG TABLET (FP) PO SCH (09:41)
--- NOTE | 2017-03-12 12:30 | PN ---
Progress Note (short form) - Note Progress Note: PULMONARY Denies further chest pain and shortness of breath. No palpitations. Last Vital Signs Temp Pulse Resp BP Pulse Ox 98.4 F 74 20 104/67 98 03/12/17 05:00 03/12/17 05:00 03/12/17 05:00 03/12/17 05:00 03/11/17 10:00 Gen: NAD at rest Heart: RRR Lung: decreased breath sounds at the bases Abd: soft, nontender Ext: no edema CBC, BMP 03/11/17 06:00 03/12/17 05:30 Active Medications Aspirin (Asa -) 81 mg PO DAILY [facility] Last Admin: 03/12/17 09:41 Dose: 81 mg Atorvastatin Calcium (Lipitor -) 40 mg PO HS [facility] Last Admin: 03/11/17 21:25 Dose: 40 mg Fenofibric Acid (Trilipix -) 135 mg PO DAILY [facility] Last Admin: 03/12/17 09:41 Dose: 135 mg Heparin Sodium (Porcine) (Heparin -) 1,000 unit IVPUSH PRN PRN PRN Reason: Heparin Heparin Sodium (Porcine) (Heparin -) 5,000 unit IVPUSH PRN PRN PRN Reason: Heparin Last Admin: 03/11/17 23:04 Dose: 5,000 unit Heparin Sodium (Porcine) 25, (000 unit/ Sodium Chloride) 500 mls @ 16 mls/hr IV TITR NONA; 800 UNIT/HR PRN Reason: Protocol Last Titration: 03/12/17 09:46 Dose: 800 unit/hr Insulin Aspart (Novolog Vial Sliding Scale -) 1 vial SQ ACHS NONA PRN Reason: Protocol Last Admin: 03/12/17 12:29 Dose: Not Given Insulin Detemir (Levemir Vial) 20 units SQ HS [facility] Last Admin: 03/11/17 21:25 Dose: 20 units Losartan Potassium (Cozaar -) 100 mg PO DAILY NONA Last Admin: 03/12/17 09:41 Dose: 100 mg Nifedipine (Procardia Xl -) 30 mg PO DAILY [facility] Last Admin: 03/12/17 09:41 Dose: 30 mg A/P Chest Pain +Troponins Multiple Myeloma HTN Hyperlipidemia DM - awaiting CTA chest to r/o PE - telemetry monitoring - cardiac work up in progress - ASA, statin - DVT prophylaxis
--- NOTE | 2017-03-12 12:40 | CONSULT ---
Consult Consult Specialty:: Nephrology ( Drs. Mondragon/ Pool) Reason for Consultation:: Patient scheduled for CT Angiogram . - History of Present Illness History of Present Illness: This is a 61 year old female with a past medical history significant for HTN, HLD, DM, Multiple myeloma on chemotherapy presented to the ED with chest pain, palpitations and SOB when getting ready for bed last night. She came to the ER. She was given ASA 162. Upon exam pt no longer with CP, palps or SOB. She does report some mid back pain, but states it is "from the bed." She denies recent illness, abdominal pain, N/V/D. The patient is receiving Chemotherapy for Multiple myeloma, and also has history of DM2. 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 History of Recent Travel: No Home Medications - Allergies Allergies/Adverse Reactions: Allergies Allergy/AdvReac Type Severity Reaction Status Date / Time No Known Allergies Allergy Verified 03/10/17 00:44 - Home Medications Home Medications: Ambulatory Orders Metformin Xr [Glucophage Xr -] 500 mg PO BID 10/09/12 Nifedipine ER [Procardia XL -] 30 mg PO DAILY 12/01/13 Atorvastatin Ca [Lipitor] 20 mg PO HS 12/06/14 Fenofibrate 160 mg PO DAILY 12/06/14 Losartan Potassium 100 mg PO DAILY 12/06/14 Oxycodone HCl/Acetaminophen [Percocet 5/325 -] 1 tab PO Q6H #14 tablet MDD 4 Family Disease History - Family Disease History Family Disease History: Diabetes: Mother Review of Systems - Review of Systems Constitutional: reports: Malaise Neck: reports: No Symptoms Cardiovascular: reports: Chest Pain, Palpitations, Shortness of Breath Respiratory: denies: Cough Gastrointestinal: denies: Abdominal Pain Genitourinary: denies: Burning Breasts: denies: No Symptoms Reported Musculoskeletal: reports: Back Pain Neurological: reports: No Symptoms Hematology/Lymphatic: reports: Other (On treatment for MM) Physical Exam Vital Signs: Vital Signs Temperature 98.4 F 03/12/17 05:00 Pulse Rate 74 03/12/17 05:00 Respiratory Rate 20 03/12/17 05:00 Blood Pressure 104/67 03/12/17 05:00 O2 Sat by Pulse Oximetry (%) 98 03/11/17 10:00 Constitutional: Yes: No Distress, Anxious HENT: Yes: Atraumatic Neck: Yes: Trachea Midline Cardiovascular: Yes: Regular Rate and Rhythm, S1, S2 Respiratory: Yes: Regular, CTA Bilaterally, Diminished Gastrointestinal: Yes: Normal Bowel Sounds, Soft Musculoskeletal: Yes: Back Pain Neurological: Yes: Alert, Oriented Psychiatric: Yes: Alert, Oriented Labs: CBC, BMP 03/11/17 06:00 03/12/17 05:30 Problem List - Problems (1) Chest pain Code(s): R07.9 - CHEST PAIN, UNSPECIFIED (2) Dyspnea Code(s): R06.00 - DYSPNEA, UNSPECIFIED (3) Diabetes mellitus Code(s): E11.9 - TYPE 2 DIABETES MELLITUS WITHOUT COMPLICATIONS Qualifiers: Diabetes mellitus type: type 2 Diabetes mellitus complication status: without complication Qualified Code(s): E11.9 - Type 2 diabetes mellitus without complications (4) Hypertension Code(s): I10 - ESSENTIAL (PRIMARY) HYPERTENSION (5) Multiple myeloma Code(s): C90.00 - MULTIPLE MYELOMA NOT HAVING ACHIEVED REMISSION Assessment/Plan This is a 61 year old female with a past medical history significant for HTN, HLD, DM, Multiple myeloma Admitted with Acute chest discomfort, Shortness of breath and she is scheduled for a CT Angiogram to R/O PE. Administration of RadioContrast agents may cause Acute Kidney Injury, especially in patients with underlying Diabetic Nephropathy with Proteinuria, Hypovolemia, Congestive Heart failure, Hemodynamic instability and Multiple myeloma. This patient has normal renal functions. No urianlysis is avilable from this admission. While the patient does carry higher than normal for Contrast Induced Nephropathy (RADHA), the benefit outweighs the risk in this case. That being said , should try to avoid volume depletion, and use the least possible amount of contrast and use Non-ionic forms of the contrast agents. Will start on IV saline for cautious hydration. Use of Mucomyst has been reported anecdotally with benefit; but this has been quite innconsistent. Will monitor the renal functions with you. Thank you. Shirley Mondragon MD
[2017-03-12] MEDS ORDERED: SODIUM CHLORIDE 1,000 ML IV SCH ×2 (12:45→16:30)
[2017-03-12] MEDS: HEPARIN - 25,000 UNIT in SODIUM CHLORIDE 495 ML IV SCH (15:56)
--- NOTE | 2017-03-12 17:24 | PN ---
Physical Exam: SUBJECTIVE: Patient seen and examined oob to chair sitting in solarium. OBJECTIVE: Vital Signs Period Temp Pulse Resp BP Sys/Vizcarra Pulse Ox Last 24 Hr 98 F-98.5 F 71-88 18-20 104-125/65-77 97 GENERAL: The patient is awake, alert, and fully oriented, in no acute distress. HEAD: Normal with no signs of trauma. EYES: PERRL, extraocular movements intact, sclera anicteric, conjunctiva clear. No ptosis. LUNGS: Breath sounds equal, clear to auscultation bilaterally, no wheezes, no crackles, no accessory muscle use. HEART: Regular rate and rhythm, S1, S2 without murmur, rub or gallop. ABDOMEN: Soft, nontender, nondistended, normoactive bowel sounds, no guarding, no rebound EXTREMITIES: 2+ pulses, warm, well-perfused, no edema. NEUROLOGICAL: Cranial nerves II through XII grossly intact. Normal speech, gait not observed. Laboratory Results - last 24 hr 03/11/17 03/11/17 03/12/17 21:19 21:25 05:29 PTT (Actin FS) 33.3 D Sodium Potassium Chloride Carbon Dioxide Anion Gap BUN Creatinine Creat Clearance w eGFR POC Glucometer 187 107 Random Glucose Calcium Phosphorus Magnesium Total Bilirubin AST ALT Alkaline Phosphatase Total Protein Albumin 03/12/17 03/12/17 03/12/17 05:30 05:30 12:19 PTT (Actin FS) 151.3 H D Sodium 142 Potassium 3.8 Chloride 108 H Carbon Dioxide 26 Anion Gap 8 BUN 12 D Creatinine 0.7 Creat Clearance w eGFR > 60 POC Glucometer 122 Random Glucose 102 Calcium 8.7 Phosphorus 3.1 Magnesium 1.9 Total Bilirubin 0.6 AST 15 ALT 20 Alkaline Phosphatase 97 D Total Protein 7.0 Albumin 3.3 L D 03/12/17 15:00 PTT (Actin FS) 62.0 H D Sodium Potassium Chloride Carbon Dioxide Anion Gap BUN Creatinine Creat Clearance w eGFR POC Glucometer Random Glucose Calcium Phosphorus Magnesium Total Bilirubin AST ALT Alkaline Phosphatase Total Protein Albumin Active Medications Generic Name Dose Route Start Last Admin Trade Name Freq PRN Reason Stop Dose Admin Aspirin 81 mg 03/11/17 10:00 03/12/17 09:41 Asa - PO 81 mg DAILY NONA Administration Atorvastatin Calcium 40 mg 03/10/17 22:00 03/11/17 21:25 Lipitor - PO 40 mg HS NONA Administration Fenofibric Acid 135 mg 03/10/17 10:00 03/12/17 09:41 Trilipix - PO 135 mg DAILY NONA Administration Heparin Sodium (Porcine) 1,000 unit 03/11/17 12:19 Heparin - IVPUSH PRN PRN Heparin Heparin Sodium (Porcine) 5,000 unit 03/11/17 12:19 03/11/17 23:04 Heparin - IVPUSH 5,000 unit PRN PRN Administration Heparin Heparin Sodium (Porcine) 25, 500 mls @ 16 mls/hr 03/11/17 12:30 03/12/17 15:56 000 unit/ Sodium Chloride IV 16 mls/hr TITR NONA Administration Protocol 800 UNIT/HR Sodium Chloride 1,000 mls @ 50 mls/hr 03/12/17 12:45 03/12/17 13:00 Normal Saline - IV 03/13/17 12:35 50 mls/hr ASDIR NONA Administration Insulin Aspart 1 vial 03/10/17 22:00 03/12/17 12:29 Novolog Vial Sliding Scale - SQ Not Given ACHS [facility] Protocol Insulin Detemir 20 units 03/10/17 22:00 03/11/17 21:25 Levemir Vial SQ 20 units HS NONA Administration Losartan Potassium 100 mg 03/10/17 10:00 03/12/17 09:41 Cozaar - PO 100 mg DAILY NONA Administration Nifedipine 30 mg 03/10/17 10:00 03/12/17 09:41 Procardia Xl - PO 30 mg DAILY NONA Administration ASSESSMENT/PLAN: 61 year-old female with a PMH significant for HTN, HLD, IDDM, and multiple myeloma on chemo. Admitted for acute onset of chest pain, SOB, and palpitations. Chest pain --patient reports symptom resolution --cardiac: flat-trending troponins, non-specific; ECG wnl; echo: LV normal, RV normal, mild MR, mild TR, mild AI, mild PI; low suspicion for ACS but cardiology wants stress testing if PE ruled out (inpatient v. outpatient?) --pulmonary: Wells score 4, moderate risk for PE; seen and evaluated by renal; started RADHA prophylaxis fluid resuscitation for planned CTA in the morning, patient agreeable to plan Hypertension --continue losartan, nifedipine Hyperlipidemia --continue lipitor IDDM --continue levemir --Novolog sliding scale coverage Multiple myeloma --being treated outpatient by Dr. Rhonda Leavitt ([phone]) F/E/N Fluids: PO intake adequate Electrolytes: replete as indicated Nutrition: sodium controlled DVT prophylaxis: heparin drip, oob, ambulation PT evaluation Daily PT Dispo: continues to require inpatient care. Full Code. Visit type - Emergency Visit Emergency Visit: Yes ED Registration Date: 03/10/17 Care time: The patient presented to the Emergency Department on the above date and was hospitalized for further evaluation of their emergent condition. - New Patient This patient is new to me today: No - Critical Care Critical Care patient: No
[2017-03-12] MEDS: INSULIN DETEMIR 100 UNITS/ML MDV SQ SCH (22:35)
[2017-03-12] MEDS: ATORVASTATIN CA 40 MG TABLET (FP) PO SCH (22:35)
[2017-03-13] MEDS: INSULIN SLIDING SCALE (NOVOLOG) 1 VIAL SQ SCH ×4 (06:46→21:58)
[2017-03-13 08:06] LABS: MCH 32.4 pg (25.7-33.7); MCHC 33.4 g/dl (32.0-36.0); MEAN CELL VOLUME 97.2 fl (80-96); MEAN PLT VOLUME 6.9 fl (7.5-11.1); PLATELET COUNT 219 K/MM3 (134-434); RDW 15.6 % (11.6-15.6); WHITE BLOOD COUNT 3.8 K/mm3 (4.0-10.0)
[2017-03-13 08:43] LABS: ALBUMIN 3.5 g/dl (3.4-5.0); ALK PHOS 107 U/L (45-117); ANION GAP 8 (8-16); BILIRUBIN,TOTAL 0.5 mg/dL (0.2-1.0); CALCIUM 8.6 mg/dL (8.5-10.1); CO2 26 mmol/L (21-32); CREATININE 0.6 mg/dL (0.55-1.02); GLUCOSE,RANDOM 114 mg/dL (74-106); SGOT/AST 12 U/L (15-37); SGPT/ALT 21 U/L (12-78); TOT PROT 7.3 g/dl (6.4-8.2)
[2017-03-13] MEDS: ASPIRIN 81 MG CHEWABLE TABLETS PO SCH (09:02)
[2017-03-13] MEDS: NIFEdipine E.R. 30 MG TABLET (FP) PO SCH (09:02)
[2017-03-13] MEDS: LOSARTAN POTASSIUM 50 MG TABLET (FP) PO SCH (09:02)
[2017-03-13] MEDS: FENOFIBRIC ACID 135 MG CAP PO SCH (09:02)
--- NOTE | 2017-03-13 09:21 | PN ---
Progress Note (short form) - Note Progress Note: s: no cp sob palps dizzy o: Vital Signs Period Temp Pulse Resp BP Sys/Vizcarra Pulse Ox Last 24 Hr 97.6 F-98.5 F 60-85 19-20 105-133/58-77 95-97 nad, calm jvd flat, neck supple ctab, nl effort rrr nl s1, s2 no mrg + bs soft nt nd ext without e/c/c aaox3 no jaundice, diaphoresis. Current Medications Generic Name Dose Route Start Last Admin Trade Name Freq PRN Reason Stop Dose Admin Aspirin 81 mg 03/11/17 10:00 03/13/17 09:02 Asa - PO 81 mg DAILY NONA Administration Atorvastatin Calcium 40 mg 03/10/17 22:00 03/12/17 22:35 Lipitor - PO 40 mg HS NONA Administration Fenofibric Acid 135 mg 03/10/17 10:00 03/13/17 09:02 Trilipix - PO 135 mg DAILY NONA Administration Heparin Sodium (Porcine) 1,000 unit 03/11/17 12:19 Heparin - IVPUSH PRN PRN Heparin Heparin Sodium (Porcine) 5,000 unit 03/11/17 12:19 03/11/17 23:04 Heparin - IVPUSH 5,000 unit PRN PRN Administration Heparin Heparin Sodium (Porcine) 25, 500 mls @ 16 mls/hr 03/11/17 12:30 03/12/17 15:56 000 unit/ Sodium Chloride IV 16 mls/hr TITR NONA Administration Protocol 800 UNIT/HR Sodium Chloride 1,000 mls @ 50 mls/hr 03/12/17 12:45 03/12/17 13:00 Normal Saline - IV 03/13/17 12:35 50 mls/hr ASDIR NONA Administration Insulin Aspart 1 vial 03/10/17 22:00 03/13/17 06:46 Novolog Vial Sliding Scale - SQ Not Given ACHS NONA Protocol Insulin Detemir 20 units 03/10/17 22:00 03/12/17 22:35 Levemir Vial SQ 20 units HS NONA Administration Losartan Potassium 100 mg 03/10/17 10:00 03/13/17 09:02 Cozaar - PO 100 mg DAILY NONA Administration Nifedipine 30 mg 03/10/17 10:00 03/13/17 09:02 Procardia Xl - PO 30 mg DAILY NONA Administration CBC, BMP 03/13/17 07:00 03/13/17 07:00 echo 03/2017: nl lv/rv. redundant chord vs. torn chord vs prolapse of posterior MV leaflet (less likely vegetation). 1+ ar/mr/tr/pr. rvsp nl. ct scan without contrast: minimal atelectasis. 3 mm pulm nodule. non-specific 7mm hepatic density. multiple compression fractures. tele: sr a/p: 61 yo with pmhx of hypertension, hyperlipidemia, iddm, and multiple myeloma (currently undergoing chemotherapy), who presents to the emergency department with chest pain/palps and borderline troponin elevation. CP/palps - troponins in intermediate range with normal CK, 2nd and 3rd troponins slightly increased from initial - non-specific finding. EKG wnl. echo without rwma. Overall clinical picture not consistent with ACS. However, patient with typical anginal symptoms, risk factors for cad and mild troponin leak in setting of fast heart rate --> would further evaluate with stress test (if today 's cta chest is negative for PE then will plan for inpt mibi tomorrow). -cta chest pending - con't asa, statin. htn: -cont current meds hld: - cont statin
--- NOTE | 2017-03-13 09:42 | PN ---
Progress Note, Physician History of Present Illness: pulmonary alert,nad,-sob,-cp - Current Medication List Current Medications: Active Medications Aspirin (Asa -) 81 mg PO DAILY [facility] Last Admin: 03/13/17 09:02 Dose: 81 mg Atorvastatin Calcium (Lipitor -) 40 mg PO HS [facility] Last Admin: 03/12/17 22:35 Dose: 40 mg Fenofibric Acid (Trilipix -) 135 mg PO DAILY [facility] Last Admin: 03/13/17 09:02 Dose: 135 mg Heparin Sodium (Porcine) (Heparin -) 1,000 unit IVPUSH PRN PRN PRN Reason: Heparin Heparin Sodium (Porcine) (Heparin -) 5,000 unit IVPUSH PRN PRN PRN Reason: Heparin Last Admin: 03/11/17 23:04 Dose: 5,000 unit Heparin Sodium (Porcine) 25, (000 unit/ Sodium Chloride) 500 mls @ 16 mls/hr IV TITR NONA; 800 UNIT/HR PRN Reason: Protocol Last Admin: 03/12/17 15:56 Dose: 16 mls/hr Sodium Chloride (Normal Saline -) 1,000 mls @ 50 mls/hr IV ASDIR [facility] Stop: 03/13/17 12:35 Last Admin: 03/12/17 13:00 Dose: 50 mls/hr Insulin Aspart (Novolog Vial Sliding Scale -) 1 vial SQ ACHS [facility] PRN Reason: Protocol Last Admin: 03/13/17 06:46 Dose: Not Given Insulin Detemir (Levemir Vial) 20 units SQ HS [facility] Last Admin: 03/12/17 22:35 Dose: 20 units Losartan Potassium (Cozaar -) 100 mg PO DAILY [facility] Last Admin: 03/13/17 09:02 Dose: 100 mg Nifedipine (Procardia Xl -) 30 mg PO DAILY [facility] Last Admin: 03/13/17 09:02 Dose: 30 mg - Objective Vital Signs: Vital Signs Temperature 97.8 F 03/13/17 06:00 Pulse Rate 60 03/13/17 06:00 Respiratory Rate 20 03/13/17 06:00 Blood Pressure 113/74 03/13/17 06:00 O2 Sat by Pulse Oximetry (%) 95 03/12/17 21:00 Constitutional: Yes: Calm, Thin Eyes: Yes: WNL HENT: Yes: WNL Neck: Yes: WNL Cardiovascular: Yes: Regular Rate and Rhythm, S1, S2 Respiratory: Yes: CTA Bilaterally Gastrointestinal: Yes: Normal Bowel Sounds, Soft Extremities: Yes: WNL Edema: No Labs: CBC, BMP 03/13/17 07:00 03/13/17 07:00 Problem List - Problems (1) Diabetes mellitus Code(s): E11.9 - TYPE 2 DIABETES MELLITUS WITHOUT COMPLICATIONS Qualifiers: Diabetes mellitus type: type 2 Diabetes mellitus complication status: without complication Qualified Code(s): E11.9 - Type 2 diabetes mellitus without complications (2) Hyperlipidemia Code(s): E78.5 - HYPERLIPIDEMIA, UNSPECIFIED (3) Hypertension Code(s): I10 - ESSENTIAL (PRIMARY) HYPERTENSION (4) Multiple myeloma Code(s): C90.00 - MULTIPLE MYELOMA NOT HAVING ACHIEVED REMISSION (5) Chest pain Code(s): R07.9 - CHEST PAIN, UNSPECIFIED (6) Dyspnea Code(s): R06.00 - DYSPNEA, UNSPECIFIED (7) Troponin level elevated Code(s): R74.8 - ABNORMAL LEVELS OF OTHER SERUM ENZYMES Assessment/Plan IMP CP/DYSPNEA/PALPITATIONS R/O CARDIAC,R/O PE + UNDERLYING MALIGNANCY + TROPONINS MM IDDM HTN HLD PLAN CHEST CTA AC O2 PRN CARDIAC W/U IN PROGRESS DR CASTRO Problem List - Problems (1) Diabetes mellitus Code(s): E11.9 - TYPE 2 DIABETES MELLITUS WITHOUT COMPLICATIONS Qualifiers: Diabetes mellitus type: type 2 Diabetes mellitus complication status: without complication Qualified Code(s): E11.9 - Type 2 diabetes mellitus without complications (2) Hyperlipidemia Code(s): E78.5 - HYPERLIPIDEMIA, UNSPECIFIED (3) Hypertension Code(s): I10 - ESSENTIAL (PRIMARY) HYPERTENSION (4) Multiple myeloma Code(s): C90.00 - MULTIPLE MYELOMA NOT HAVING ACHIEVED REMISSION (5) Chest pain Code(s): R07.9 - CHEST PAIN, UNSPECIFIED (6) Dyspnea Code(s): R06.00 - DYSPNEA, UNSPECIFIED (7) Troponin level elevated Code(s): R74.8 - ABNORMAL LEVELS OF OTHER SERUM ENZYMES
--- NOTE | 2017-03-13 10:02 | PN ---
Progress Note (short form) - Note Progress Note: Renal follow up for contrast nephropathy prophylaxis Pt seen and examined at the bedside awake and alert denies any CP, SOB, Abd pain, N/V/D on IVF good urine output awaiting CTA of the chest to r/o PE Vital Signs Temperature 97.8 F 03/13/17 06:00 Pulse Rate 60 03/13/17 06:00 Respiratory Rate 20 03/13/17 06:00 Blood Pressure 113/74 03/13/17 06:00 O2 Sat by Pulse Oximetry (%) 95 03/12/17 21:00 Intake & Output 03/10/17 03/11/17 03/12/17 03/13/17 23:59 23:59 23:59 23:59 Intake Total 120 420 606 Balance 120 420 606 Weight 148 lb 145 lb 6.4 oz 144 lb 6.4 oz 145 lb 6.4 oz Gen: NAD CVS: RRR, No M/R Lungs: CTA, no rales or wheeze Abd: soft NT/ND Ext: No edema CBC, BMP 03/13/17 07:00 03/13/17 07:00 Laboratory Tests 03/13/17 07:00 Calcium 8.6 Albumin 3.5 Current Medications Aspirin (Asa -) 81 mg PO DAILY NONA Last Admin: 03/13/17 09:02 Dose: 81 mg Atorvastatin Calcium (Lipitor -) 40 mg PO HS NONA Last Admin: 03/12/17 22:35 Dose: 40 mg Fenofibric Acid (Trilipix -) 135 mg PO DAILY NONA Last Admin: 03/13/17 09:02 Dose: 135 mg Heparin Sodium (Porcine) (Heparin -) 1,000 unit IVPUSH PRN PRN PRN Reason: Heparin Heparin Sodium (Porcine) (Heparin -) 5,000 unit IVPUSH PRN PRN PRN Reason: Heparin Last Admin: 03/11/17 23:04 Dose: 5,000 unit Heparin Sodium (Porcine) 25, (000 unit/ Sodium Chloride) 500 mls @ 16 mls/hr IV TITR NONA; 800 UNIT/HR PRN Reason: Protocol Last Admin: 03/12/17 15:56 Dose: 16 mls/hr Sodium Chloride (Normal Saline -) 1,000 mls @ 50 mls/hr IV ASDIR NONA Stop: 03/13/17 12:35 Last Admin: 03/12/17 13:00 Dose: 50 mls/hr Insulin Aspart (Novolog Vial Sliding Scale -) 1 vial SQ ACHS NONA PRN Reason: Protocol Last Admin: 03/13/17 06:46 Dose: Not Given Insulin Detemir (Levemir Vial) 20 units SQ HS NONA Last Admin: 03/12/17 22:35 Dose: 20 units Losartan Potassium (Cozaar -) 100 mg PO DAILY NONA Last Admin: 03/13/17 09:02 Dose: 100 mg Nifedipine (Procardia Xl -) 30 mg PO DAILY NONA Last Admin: 03/13/17 09:02 Dose: 30 mg A/P 61 year old female with PMHx of hypertension, hyperlipidemia, diabetes and multiple myeloma (currently undergoing chemotherapy), who presents to the emergency department with chest pain and admitted for r/o ACS/PE #Contrast Nephropathy Risk stratification and prophylaxis Risk of RADHA is 14% and risk of dialysis is 0.12% based on RADHA calculator developed by Rob et al. Continue IVF and would monitor BUN/Cr [id number] hours post contrast exposure would avoid any NSIADs can continue ARB #CP r/o ACS/PE for CTA Cardiology following Thank you Saúl Lanza DO
[2017-03-13] MEDS: HEPARIN - 25,000 UNIT in SODIUM CHLORIDE 495 ML IV SCH (12:30)
[2017-03-13 13:41] LABS: BASOPHIL 0.5 % (0-2.0); EOSINOPHIL 1.5 % (0-4.5); MCH 32.5 pg (25.7-33.7); MCHC 33.3 g/dl (32.0-36.0); MEAN CELL VOLUME 97.4 fl (80-96); MEAN PLT VOLUME 7.1 fl (7.5-11.1); NEUTROPHILS 52.2 % (42.8-82.8); PLATELET COUNT 212 K/MM3 (134-434); RDW 15.5 % (11.6-15.6); WHITE BLOOD COUNT 4.3 K/mm3 (4.0-10.0)
--- NOTE | 2017-03-13 13:55 | PN ---
Physical Exam: SUBJECTIVE: Patient seen and examined at bedside. No complaints. OBJECTIVE: Vital Signs Period Temp Pulse Resp BP Sys/Vizcarra Pulse Ox Last 24 Hr 97.6 F-98.3 F 60-78 19-20 105-133/58-74 95 GENERAL: The patient is awake, alert, and fully oriented, in no acute distress. HEAD: Normal with no signs of trauma. EYES: PERRL, extraocular movements intact, sclera anicteric, conjunctiva clear. No ptosis. LUNGS: Breath sounds equal, clear to auscultation bilaterally, no wheezes, no crackles, no accessory muscle use. HEART: Regular rate and rhythm, S1, S2 without murmur, rub or gallop. ABDOMEN: Soft, nontender, nondistended, normoactive bowel sounds, no guarding, no rebound EXTREMITIES: 2+ pulses, warm, well-perfused, no edema. NEUROLOGICAL: Cranial nerves II through XII grossly intact. Normal speech, gait not observed. Laboratory Results - last 24 hr 03/12/17 03/12/17 03/12/17 15:00 17:38 22:29 WBC RBC Hgb Hct MCV MCH MCHC RDW Plt Count MPV Neutrophils % Lymphocytes % Monocytes % Eosinophils % Basophils % PTT (Actin FS) 62.0 H D Sodium Potassium Chloride Carbon Dioxide Anion Gap BUN Creatinine Creat Clearance w eGFR POC Glucometer 251 155 Random Glucose Calcium Total Bilirubin AST ALT Alkaline Phosphatase Total Protein Albumin 03/13/17 03/13/17 03/13/17 05:44 07:00 07:00 WBC 3.8 L RBC 3.65 Hgb 11.8 Hct 35.4 MCV 97.2 H MCH 32.4 MCHC 33.4 RDW 15.6 Plt Count 219 MPV 6.9 L Neutrophils % Lymphocytes % Monocytes % Eosinophils % Basophils % PTT (Actin FS) 76.2 H Sodium Potassium Chloride Carbon Dioxide Anion Gap BUN Creatinine Creat Clearance w eGFR POC Glucometer 117 Random Glucose Calcium Total Bilirubin AST ALT Alkaline Phosphatase Total Protein Albumin 03/13/17 03/13/17 03/13/17 07:00 11:37 13:10 WBC 4.3 RBC 3.63 Hgb 11.8 Hct 35.4 MCV 97.4 H MCH 32.5 MCHC 33.3 RDW 15.5 Plt Count 212 MPV 7.1 L Neutrophils % 52.2 Lymphocytes % 37.3 Monocytes % 8.5 Eosinophils % 1.5 Basophils % 0.5 PTT (Actin FS) Sodium 142 Potassium 4.0 Chloride 108 H Carbon Dioxide 26 Anion Gap 8 BUN 9 D Creatinine 0.6 Creat Clearance w eGFR > 60 POC Glucometer 269 Random Glucose 114 H Calcium 8.6 Total Bilirubin 0.5 AST 12 L ALT 21 Alkaline Phosphatase 107 Total Protein 7.3 Albumin 3.5 Active Medications Generic Name Dose Route Start Last Admin Trade Name Freq PRN Reason Stop Dose Admin Aspirin 81 mg 03/11/17 10:00 03/13/17 09:02 Asa - PO 81 mg DAILY NONA Administration Atorvastatin Calcium 40 mg 03/10/17 22:00 03/12/17 22:35 Lipitor - PO 40 mg HS NONA Administration Fenofibric Acid 135 mg 03/10/17 10:00 03/13/17 09:02 Trilipix - PO 135 mg DAILY NONA Administration Heparin Sodium (Porcine) 1,000 unit 03/11/17 12:19 Heparin - IVPUSH PRN PRN Heparin Heparin Sodium (Porcine) 5,000 unit 03/11/17 12:19 03/11/17 23:04 Heparin - IVPUSH 5,000 unit PRN PRN Administration Heparin Heparin Sodium (Porcine) 25, 500 mls @ 16 mls/hr 03/11/17 12:30 03/12/17 15:56 000 unit/ Sodium Chloride IV 16 mls/hr TITR NONA Administration Protocol 800 UNIT/HR Insulin Aspart 1 vial 03/10/17 22:00 03/13/17 11:47 Novolog Vial Sliding Scale - SQ 4 units ACHS [facility] Administration Protocol Insulin Detemir 20 units 03/10/17 22:00 03/12/17 22:35 Levemir Vial SQ 20 units HS NONA Administration Losartan Potassium 100 mg 03/10/17 10:00 03/13/17 09:02 Cozaar - PO 100 mg DAILY NONA Administration Nifedipine 30 mg 03/10/17 10:00 03/13/17 09:02 Procardia Xl - PO 30 mg DAILY NONA Administration ASSESSMENT/PLAN: 61 year-old female with a PMH significant for HTN, HLD, IDDM, and multiple myeloma on chemo. Admitted for acute onset of chest pain, SOB, and palpitations. Chest pain --patient reports symptom resolution --cardiac: flat-trending troponins, non-specific; ECG wnl; echo: LV normal, RV normal, mild MR, mild TR, mild AI, mild PI; low suspicion for ACS; stress MIBI tomorrow --pulmonary: 03/13 CTA negative for PE; stop heparin drip; continue IV fluids for 12 more hours; monitor BUN/Cr Hypertension --continue losartan, nifedipine Hyperlipidemia --continue lipitor IDDM --continue levemir --Novolog sliding scale coverage Multiple myeloma --being treated outpatient by Dr. Rhonda Leavitt ([phone]) F/E/N Fluids: NS @ 75mL/hr x 12 hours Electrolytes: replete as indicated Nutrition: sodium controlled DVT prophylaxis: oob, ambulation, subq heparin PT evaluation Daily PT Dispo: continues to require inpatient care. Full Code. Visit type - Emergency Visit Emergency Visit: Yes ED Registration Date: 03/10/17 Care time: The patient presented to the Emergency Department on the above date and was hospitalized for further evaluation of their emergent condition. - New Patient This patient is new to me today: No - Critical Care Critical Care patient: No
[2017-03-13] MEDS ORDERED: SODIUM CHLORIDE 1,000 ML IV SCH (14:00)
[2017-03-13 19:55] LABS: URINE APPEARANCE CLEAR; URINE BILIRUBIN NEGATIVE (NEGATIVE); URINE BLOOD NEGATIVE (NEGATIVE); URINE COLOR LTYELLOW; URINE GLUCOSE (UA) 1+ (NEGATIVE); URINE KETONE NEGATIVE (NEGATIVE); URINE NITRITE NEGATIVE (NEGATIVE); URINE PROTEIN NEGATIVE (NEGATIVE); URINE UROBILINOGEN NEGATIVE mg/dL (0.2-1.0)
[2017-03-13 19:57] LABS: URINE LEUK ESTERASE 1+ (NEGATIVE)
[2017-03-13 19:59] LABS: URINE RBC 1 /hpf (0-3); URINE WBC 3 /hpf (3-5)
[2017-03-13] MEDS: ATORVASTATIN CA 40 MG TABLET (FP) PO SCH (21:58)
[2017-03-13] MEDS: INSULIN DETEMIR 100 UNITS/ML MDV SQ SCH (21:58)
[2017-03-13] MEDS ORDERED: HEPARIN NA (PORCINE) 5,000 UNITS/ML 1ML VIAL SQ SCH (22:00)
[2017-03-14] MEDS: INSULIN SLIDING SCALE (NOVOLOG) 1 VIAL SQ SCH ×3 (06:24→12:11)
[2017-03-14 07:39] LABS: MCH 32.9 pg (25.7-33.7); MCHC 33.8 g/dl (32.0-36.0); MEAN CELL VOLUME 97.3 fl (80-96); PLATELET COUNT 207 K/MM3 (134-434); RDW 15.5 % (11.6-15.6); WHITE BLOOD COUNT 3.7 K/mm3 (4.0-10.0)
[2017-03-14 07:45] LABS: ANION GAP 8 (8-16); CALCIUM 8.4 mg/dL (8.5-10.1); CO2 27 mmol/L (21-32); CREATININE 0.6 mg/dL (0.55-1.02); GLUCOSE,RANDOM 101 mg/dL (74-106)
[2017-03-14] MEDS ORDERED: WATER IVPB ONE (10:00)
[2017-03-14] MEDS ORDERED: DEXTROSE 5% IVPB ONE (10:00)
[2017-03-14] MEDS ORDERED: DIPYRIDAMOLE STRESS TEST IVPB ONE (10:00)
[2017-03-14] MEDS: FENOFIBRIC ACID 135 MG CAP PO SCH (12:11)
[2017-03-14] MEDS: ASPIRIN 81 MG CHEWABLE TABLETS PO SCH (12:11)
[2017-03-14] MEDS: NIFEdipine E.R. 30 MG TABLET (FP) PO SCH (12:11)
[2017-03-14] MEDS: LOSARTAN POTASSIUM 50 MG TABLET (FP) PO SCH (12:11)
[2017-03-14] MEDS ORDERED: HYDROmorphone HCL CARPU-JECT 2 MG/1 ML DISP.SYRIN IVPUSH ONE (12:12)
--- NOTE | 2017-03-14 12:18 | PN ---
Progress Note (short form) - Note Progress Note: CC: cp/palps s: no cp sob palps dizzy. stress test this morning. o: Current Medications Aspirin (Asa -) 81 mg PO DAILY [facility] Last Admin: 03/14/17 12:11 Dose: 81 mg Atorvastatin Calcium (Lipitor -) 40 mg PO HS [facility] Last Admin: 03/13/17 21:58 Dose: 40 mg Fenofibric Acid (Trilipix -) 135 mg PO DAILY [facility] Last Admin: 03/14/17 12:11 Dose: 135 mg Heparin Sodium (Porcine) (Heparin -) 5,000 unit SQ BID [facility] Last Admin: 03/13/17 21:58 Dose: 5,000 unit Hydromorphone HCl (Dilaudid Injection -) 2 mg IVPUSH ONCE ONE Stop: 03/14/17 12:13 Insulin Aspart (Novolog Vial Sliding Scale -) 1 vial SQ [facility] PRN Reason: Protocol Last Admin: 03/14/17 12:11 Dose: Not Given Insulin Detemir (Levemir Vial) 20 units SQ HS [facility] Last Admin: 03/13/17 21:58 Dose: 20 units Losartan Potassium (Cozaar -) 100 mg PO DAILY [facility] Last Admin: 03/14/17 12:11 Dose: 100 mg Nifedipine (Procardia Xl -) 30 mg PO DAILY [facility] Last Admin: 03/14/17 12:11 Dose: 30 mg Vital Signs - 24 hr 03/13/17 03/13/17 03/13/17 14:00 18:00 21:00 Temperature 97.9 F 97.9 F Pulse Rate 70 70 Respiratory 20 20 Rate Blood Pressure 104/64 129/70 O2 Sat by Pulse 97 Oximetry (%) 03/13/17 03/14/17 03/14/17 22:00 02:00 05:42 Temperature 97.8 F 98.2 F 97.5 F L Pulse Rate 60 98 H 72 Respiratory 20 20 22 Rate Blood Pressure 118/68 124/72 141/78 O2 Sat by Pulse Oximetry (%) 03/14/17 03/14/17 08:00 09:00 Temperature 98.3 F Pulse Rate 64 Respiratory 18 Rate Blood Pressure 140/73 O2 Sat by Pulse 97 Oximetry (%) Intake & Output 03/12/17 03/13/17 03/14/17 03/15/17 07:59 07:59 07:59 07:59 Intake Total 628 298 900 0 Balance 628 298 900 0 Weight 144 lb 6.4 oz 145 lb 6.4 oz 147 lb 2 oz nad, calm jvd flat, neck supple ctab, nl effort rrr nl s1, s2 no mrg + bs soft nt nd ext without e/c/c aaox3 no jaundice, diaphoresis. CBC, BMP 03/14/17 05:35 03/14/17 05:35 echo 03/2017: nl lv/rv. redundant chord vs. torn chord vs prolapse of posterior MV leaflet (less likely vegetation). 1+ ar/mr/tr/pr. rvsp nl. ct scan without contrast: minimal atelectasis. 3 mm pulm nodule. non-specific 7mm hepatic density. multiple compression fractures. tele: sr a/p: 61 yo with pmhx of hypertension, hyperlipidemia, iddm, and multiple myeloma (currently undergoing chemotherapy), who presents to the emergency department with chest pain/palps and borderline troponin elevation. CP/palps - troponins in intermediate range with normal CK, 2nd and 3rd troponins slightly increased from initial - non-specific finding. EKG wnl. echo without rwma. Overall clinical picture not consistent with ACS. However, patient with typical anginal symptoms, risk factors for cad and mild troponin leak in setting of fast heart rate --> would further evaluate with stress test (if today 's cta chest is negative for PE then will plan for inpt mibi tomorrow). -cta chest neg for PE --> plan for risk stratification with stress test today. - con't asa, statin. htn: -cont current meds hld: - cont statin
--- NOTE | 2017-03-14 12:41 | DS ---
Physical Exam: SUBJECTIVE: Patient seen and examined OBJECTIVE: Vital Signs Period Temp Pulse Resp BP Sys/Vizcarra Pulse Ox Last 24 Hr 97.5 F-98.5 F 60-98 18-22 104-150/64-90 97-97 PHYSICAL EXAM GENERAL: The patient is awake, alert, and fully oriented, in no acute distress. HEAD: Normal with no signs of trauma. EYES: PERRL, extraocular movements intact, sclera anicteric, conjunctiva clear. ENT: Ears normal, nares patent, oropharynx clear without exudates, moist mucous membranes. NECK: Trachea midline, full range of motion, supple. LUNGS: Breath sounds equal, clear to auscultation bilaterally, no wheezes, no crackles, no accessory muscle use. HEART: Regular rate and rhythm, S1, S2 without murmur, rub or gallop. ABDOMEN: Soft, nontender, nondistended, normoactive bowel sounds, no guarding, no rebound, no hepatosplenomegaly, no masses. EXTREMITIES: 2+ pulses, warm, well-perfused, no edema. NEUROLOGICAL: Cranial nerves II through XII grossly intact. Normal speech, gait not observed. PSYCH: Normal mood, normal affect. SKIN: Warm, dry, normal turgor, no rashes or lesions noted. LABS Laboratory Results - last 24 hr 03/13/17 03/13/17 03/13/17 13:10 18:08 19:03 WBC 4.3 RBC 3.63 Hgb 11.8 Hct 35.4 MCV 97.4 H MCH 32.5 MCHC 33.3 RDW 15.5 Plt Count 212 MPV 7.1 L Neutrophils % 52.2 Lymphocytes % 37.3 Monocytes % 8.5 Eosinophils % 1.5 Basophils % 0.5 PTT (Actin FS) Sodium Potassium Chloride Carbon Dioxide Anion Gap BUN Creatinine POC Glucometer 173 Random Glucose Calcium Urine Color Ltyellow Urine Appearance Clear Urine pH 6.0 Ur Specific [place] 1.015 Urine Protein Negative Urine Glucose (UA) 1+ H Urine Ketones Negative Urine Blood Negative Urine Nitrite Negative Urine Bilirubin Negative Urine Urobilinogen Negative Ur Leukocyte Esterase 1+ H Urine RBC 1 Urine WBC 3 Ur Epithelial Cells Rare U Random Total Protein Urine Creatinine 03/13/17 03/13/17 03/13/17 19:03 19:03 21:50 WBC RBC Hgb Hct MCV MCH MCHC RDW Plt Count MPV Neutrophils % Lymphocytes % Monocytes % Eosinophils % Basophils % PTT (Actin FS) Sodium Potassium Chloride Carbon Dioxide Anion Gap BUN Creatinine POC Glucometer 207 Random Glucose Calcium Urine Color Urine Appearance Urine pH Ur Specific [place] Urine Protein Urine Glucose (UA) Urine Ketones Urine Blood Urine Nitrite Urine Bilirubin Urine Urobilinogen Ur Leukocyte Esterase Urine RBC Urine WBC Ur Epithelial Cells U Random Total Protein 6 Urine Creatinine 44.4 03/14/17 03/14/17 03/14/17 05:05 05:35 05:35 WBC 3.7 L RBC 3.44 L Hgb 11.3 Hct 33.5 MCV 97.3 H MCH 32.9 MCHC 33.8 RDW 15.5 Plt Count 207 MPV 7.0 L Neutrophils % Lymphocytes % Monocytes % Eosinophils % Basophils % PTT (Actin FS) 25.5 L D Sodium Potassium Chloride Carbon Dioxide Anion Gap BUN Creatinine POC Glucometer 124 Random Glucose Calcium Urine Color Urine Appearance Urine pH Ur Specific [place] Urine Protein Urine Glucose (UA) Urine Ketones Urine Blood Urine Nitrite Urine Bilirubin Urine Urobilinogen Ur Leukocyte Esterase Urine RBC Urine WBC Ur Epithelial Cells U Random Total Protein Urine Creatinine 03/14/17 03/14/17 05:35 12:09 WBC RBC Hgb Hct MCV MCH MCHC RDW Plt Count MPV Neutrophils % Lymphocytes % Monocytes % Eosinophils % Basophils % PTT (Actin FS) Sodium 144 Potassium 4.1 Chloride 109 H Carbon Dioxide 27 Anion Gap 8 BUN 9 Creatinine 0.6 POC Glucometer 103 Random Glucose 101 Calcium 8.4 L Urine Color Urine Appearance Urine pH Ur Specific [place] Urine Protein Urine Glucose (UA) Urine Ketones Urine Blood Urine Nitrite Urine Bilirubin Urine Urobilinogen Ur Leukocyte Esterase Urine RBC Urine WBC Ur Epithelial Cells U Random Total Protein Urine Creatinine HOSPITAL COURSE: Date of Admission:03/10/17 Date of Discharge: 03/14/17 61 year-old female with a PMH significant for HTN, HLD, IDDM, and multiple myeloma on chemo. Admitted for acute onset of chest pain, SOB, and palpitations. Atypical chest pain r/o ACS r/o PE --patient reported complete symptom resolution on day after admission --cardiac: flat-trending troponins, non-specific; ECG wnl; echo: LV normal, RV normal, mild MR, mild TR, mild AI, mild PI; stress MIBI unremarkable, ACS ruled out --pulmonary: 03/13 CTA negative for PE; heparin drip was stopped; due to concern for RADHA, patient was given IV fluids 12 hours before, during, and 12 hours after procedure; renal function stable Hypertension --continued losartan, nifedipine Hyperlipidemia --continued lipitor IDDM --continued levemir --Novolog sliding scale coverage Multiple myeloma --being treated outpatient by Dr. Rhonda Leavitt ([phone]) Minutes to complete discharge: 35 Discharge Summary Reason For Visit: NSTEMI Current Active Problems Chest pain (Acute) Dyspnea (Acute) NSTEMI (non-ST elevated myocardial infarction) (Acute) Troponin level elevated (Acute) Condition: Improved - Instructions Diet, Activity, Other Instructions: Because you received IV contrast, you should be extra careful to keep up your fluid intake. You should also see your primary care provider within 48 to 72 hours to have blood work done to check your renal function. Return to the emergency department for any new or worsening symptoms. Referrals: Courtney Atkinson MD [Staff Physician] - Marycruz Yoon [Primary Care Provider] - 03/23/17 9:00 am Disposition: HOME - Home Medications Comprehensive Discharge Medication List: Ambulatory Orders Metformin Xr [Glucophage Xr -] 500 mg PO BID 10/09/12 Nifedipine ER [Procardia XL -] 30 mg PO DAILY 12/01/13 Atorvastatin Ca [Lipitor] 20 mg PO HS 12/06/14 Fenofibrate 160 mg PO DAILY 12/06/14 Losartan Potassium 100 mg PO DAILY 12/06/14 Oxycodone HCl/Acetaminophen [Percocet 5/325 -] 1 tab PO Q6H #14 tablet MDD 4 This patient is new to me today: No Emergency Visit: Yes ED Registration Date: 03/10/17 Care time: The patient presented to the Emergency Department on the above date and was hospitalized for further evaluation of their emergent condition. Critical Care patient: No - Discharge Referral Referred to [facility] No
--- NOTE | 2017-03-14 13:31 | PN ---
Progress Note (short form) - Note Progress Note: Renal follow up for contrast nephropathy prophylaxis Pt seen and examined in the solarium no acute complaints for stress test today s/p CTA of the chest that was negative for PE goo urine output Vital Signs Temperature 98.5 F 03/14/17 12:00 Pulse Rate 78 03/14/17 12:00 Respiratory Rate 18 03/14/17 12:00 Blood Pressure 150/90 03/14/17 12:00 O2 Sat by Pulse Oximetry (%) 97 03/14/17 09:00 Intake & Output 03/11/17 03/12/17 03/13/17 03/14/17 23:59 23:59 23:59 23:59 Intake Total 420 606 900 Balance 420 606 900 Weight 145 lb 6.4 oz 144 lb 6.4 oz 145 lb 6.4 oz 147 lb 2 oz Gen: NAD CVS: RRR, No M/R Lungs: CTA, no rales or wheeze Abd: soft NT/ND Ext: No edema CBC, BMP 03/14/17 05:35 03/14/17 05:35 Laboratory Tests 03/14/17 05:35 Calcium 8.4 L Current Medications Aspirin (Asa -) 81 mg PO DAILY [facility] Last Admin: 03/14/17 12:11 Dose: 81 mg Atorvastatin Calcium (Lipitor -) 40 mg PO HS [facility] Last Admin: 03/13/17 21:58 Dose: 40 mg Fenofibric Acid (Trilipix -) 135 mg PO DAILY [facility] Last Admin: 03/14/17 12:11 Dose: 135 mg Heparin Sodium (Porcine) (Heparin -) 5,000 unit SQ BID [facility] Last Admin: 03/13/17 21:58 Dose: 5,000 unit Insulin Aspart (Novolog Vial Sliding Scale -) 1 vial SQ [facility] PRN Reason: Protocol Last Admin: 03/14/17 12:11 Dose: Not Given Insulin Detemir (Levemir Vial) 20 units SQ HS [facility] Last Admin: 03/13/17 21:58 Dose: 20 units Losartan Potassium (Cozaar -) 100 mg PO DAILY [facility] Last Admin: 03/14/17 12:11 Dose: 100 mg Nifedipine (Procardia Xl -) 30 mg PO DAILY [facility] Last Admin: 03/14/17 12:11 Dose: 30 mg A/P 61 year old female with PMHx of hypertension, hyperlipidemia, diabetes and multiple myeloma (currently undergoing chemotherapy), who presents to the emergency department with chest pain and admitted for r/o ACS/PE #Contrast Nephropathy Risk stratification and prophylaxis s/p contrast for CTA of the chest Renal function stable this am on need for IVF encouraged oral hydration Trend BUN/Cr, if discharged pt advised to follow up with PMD in a few days and have repeat labs #CP r/o ACS/PE CTA negative Stress test pending Cardiology following Thank you Saúl Lanza DO
[2017-03-14 15:30] VITALS: BP 140/69; PULSE 82; TEMP 97.9
--- NOTE | 2017-03-20 23:16 | EKG ---
Test Reason : Blood Pressure : / mmHG Vent. Rate : 091 BPM Atrial Rate : 091 BPM P-R Int : 178 ms QRS Dur : 076 ms QT Int : 358 ms P-R-T Axes : 043 014 052 degrees QTc Int : 440 ms NORMAL SINUS RHYTHM NORMAL ECG WHEN COMPARED WITH ECG OF 06-DEC-2014 20:30, NO SIGNIFICANT CHANGE WAS FOUND Confirmed by MARK NUNEZ MD ([id number]) on 03/20/2017 11:16:19 PM Referred By: Confirmed By:MARK NUNEZ MD
== END 2017-03-14 17:04 | disposition home or self-care (01) | DRG 313 ==
LOC: JER 00:13 → INTOOBSV 05:04 → JERBED 05:04 → UNDOADMIN 05:20 → OBSVTOIN 17:38 → J4W 17:49
PROVIDERS: ADMIT Internal Medicine; ATTEND Nurse Practitioner Acute Care
DX: R07.89 Other chest pain (principal); C90.00 Multiple myeloma not having achieved remission; J98.11 Atelectasis; I10 Essential (primary) hypertension; E78.5 Hyperlipidemia, unspecified; E11.9 Type 2 diabetes mellitus without complications; Z79.4 Long term (current) use of insulin; R74.8 Abnormal levels of other serum enzymes; R06.00 Dyspnea, unspecified; D64.9 Anemia, unspecified; R00.2 Palpitations
CPT/HCPCS: 36415; 71010-TC; 71250-TC; 71275-TC; 78452-TC; 80048; 80053; 81003; 81015; 82570; 83735; 84100; 84156; 84443; 84484; 85025; 85027; 85730; 93005; 93010; 93017; 93306-TC; 93970-TC; 97116-GP; 97161-GP; 99284-25; A9502; G0378; J1644